=== PATIENT | female | born 1960 | race Caucasian/White ===

== ENCOUNTER 2020-05-06 10:46 | Observation (INO) | payer SELFPAY ==
[2020-05-06 11:44] LABS: #Lymphocytes 1.3 thou/uL (1.20-3.40); #Monocytes 0.4 thou/uL (0.11-0.59); #Neutrophils 5.2 thou/uL (1.40-6.50); %Basophils 0.6 % (0.0-1.0); %Eosinophils 0.4 % (0.0-10.0); %Lymphocytes 18.3 % (21.0-51.0); %Monocytes 6.2 % (0.0-10.0); %Neutrophils 74.5 % (42.0-75.0); Hemoglobin 15.3 g/dL (12.0-16.0); Mean Corpuscular Hemoglobin 33.7 pg (27.0-31.0); Mean Corpuscular Volume 99.2 fL (78.0-98.0); Mean Platelet Volume 7.8 fL (7.4-10.4); Platelet Count 241 thou/uL (130-400); RBC Distribution Width 11.3 % (11.5-14.5); Red Blood Cell (RBC) Count 4.53 mill/uL (4.20-5.40)
--- NOTE | 2020-05-06 12:03 | RAD ---
XR Chest 1 View Portable History: Chest pain Comparison: None. Findings: Lungs are clear. Heart size mildly enlarged. No pneumothorax. No effusion. No acute osseous abnormality. Impression: No acute intrathoracic abnormality.
[2020-05-06 12:07] LABS: ALT (SGPT) 34 U/L (8-55); AST (SGOT) 29 U/L (5-34); Albumin 4.2 g/dL (3.5-5.0); Alkaline Phosphatase 79 U/L (40-110); Anion Gap 18 mmol/L (10-20); BUN (Urea Nitrogen) 12 mg/dL (9.8-20.1); Bilirubin, Total 0.7 mg/dL (0.2-1.2); Calc. Creatinine Clearance 0 mL/min (70-130); Calcium 9.2 mg/dL (7.8-10.44); Carbon Dioxide 25 mmol/L (22-29); Chloride 97 mmol/L (98-107); Globulin 3.4 g/dL (2.4-3.5); Glucose 394 mg/dL (70-105); Potassium 4.1 mmol/L (3.5-5.1); Protein, Total 7.6 g/dL (6.0-8.3); Sodium 136 mmol/L (136-145)
[2020-05-06] MEDS ORDERED: Nitroglycerin 2% Ointment 1 INCH/1 GM Packet ONE (13:21)
[2020-05-06] MEDS ORDERED: Aspirin 325 MG TAB ONE (13:21)
[2020-05-06] MEDS ORDERED: Melatonin 3 MG TAB PO PRN (14:42)
--- NOTE | 2020-05-06 15:00 | PDOC.HHP ---
Hospitalist HPI - History of Present Illness History of Present Illness: ADMISSION DATE: 05/06/2020 TIME OF ASSESSMENT: 1425 PRIMARY CARE PHYSICIAN: Laila CHIEF COMPLAINT: Chest pain HPI: Patient is a 59-year-old female past medical history significant only for cholecystectomy. She presents to the ER today for chest pain that began last night. She states she was uncomfortable while lying in bed with a little back pain and then this morning she felt mid chest sharp pain that radiated up her neck. Patient states she did not take anything to help relieve the pain but did take some ZzzQuil to help her sleep. She denies difficulty breathing, fever, nausea, vomiting, diarrhea, contact with sick persons. She denies a diagnosed history of hypertension, however states that when her blood pressure is checked it is often high. Patient denies any heart history but does take a baby aspirin a day, she started when she heard information that it could possibly help with Covid. ED COURSE: Vital Signs: BP: 144/102, MAP: 116, Pulse: 92, Resp: 18, Pain: 2, O2 sat: 99 on (Room Air) Today in the ER they completed lab work, EKG, and chest x-ray. She was administered aspirin 324 mg oral and nitro 1 inch topical. PAST MEDICAL HISTORY: None PAST SURGICAL HISTORY: Cholecystectomy SOCIAL HISTORY: Patient lives at home with her . She denies any drug use. She does endorse weekly alcohol use and smokes 1/2 pack/day. FAMILY HISTORY: CAD, [place], DM 2, Cancer ALLERGIES: NKDA CURRENT MEDICATIONS: Aspirin 81 mg daily Hospitalist ROS - Review of Systems Cardiovascular: reports: chest pain All other systems reviewed; all pertinent +/- noted in HPI/Subj - Exam General Appearance: NAD, awake alert ENT: normocephalic atraumatic Heart: RRR, no murmur, no gallops, no rubs, normal peripheral pulses Respiratory: CTAB, no wheezes, no rales, no ronchi, normal chest expansion Gastrointestinal: soft, non-tender, non-distended, normal bowel sounds Extremities: no edema Neurological: no focal deficits Musculoskeletal: no muscle wasting Psychiatric: normal affect, normal behavior, A&O x 3 Hospitalist Results - Labs Result Diagrams: 05/06/20 11:29 05/06/20 11:30 Lab results: WBC 7.0 thou/uL (4.8-10.8) 05/06/20 11:29 Hgb 15.3 g/dL (12.0-16.0) 05/06/20 11:29 Hct 44.9 % (36.0-47.0) 05/06/20 11:29 MCV 99.2 fL (78.0-98.0) H 05/06/20 11:29 Plt Count 241 thou/uL (130-400) 05/06/20 11:29 Neutrophils % 74.5 % (42.0-75.0) 05/06/20 11:29 Sodium 136 mmol/L (136-145) 05/06/20 11:30 Potassium 4.1 mmol/L (3.5-5.1) 05/06/20 11:30 Chloride 97 mmol/L (98-107) L 05/06/20 11:30 Carbon Dioxide 25 mmol/L (22-29) 05/06/20 11:30 BUN 12 mg/dL (9.8-20.1) 05/06/20 11:30 Creatinine 0.82 mg/dL (0.6-1.1) 05/06/20 11:30 Glucose 394 mg/dL (70-105) H 05/06/20 11:30 Calcium 9.2 mg/dL (7.8-10.44) 05/06/20 11:30 Total Bilirubin 0.7 mg/dL (0.2-1.2) 05/06/20 11:30 AST 29 U/L (5-34) 05/06/20 11:30 ALT 34 U/L (8-55) 05/06/20 11:30 Alkaline Phosphatase 79 U/L (40-110) 05/06/20 11:30 Troponin I Less than 0.010 ng/mL (< 0.028) 05/06/20 11:30 Serum Total Protein 7.6 g/dL (6.0-8.3) 05/06/20 11:30 Albumin 4.2 g/dL (3.5-5.0) 05/06/20 11:30 - Radiology Interpretation Chest x-ray Status: image reviewed by me, report reviewed by me Additional Comment: No acute intrathoracic abnormality. Hospitalist H&P A/P - Plan Plan: Chest pain Chest pain has decreased as blood pressure has decreased with nitro Continue to trend troponins Cardiac stress test in a.m. if troponins remain negative TSH and mag ordered Hyperglycemia No history of diabetes Initial glucose was 394 Hemoglobin A1c ordered Hypertension Patient presented to the ER with blood pressure 175/95 Patient states she does not have a formal diagnosis of hypertension however commonly has elevated pressure Continue monitor vital signs every 4 hours May need to begin antihypertensive medications As needed antihypertensives available CODE STATUS: Full Surrogate decision-maker is her , Wili Patient discussed with Dr. Roldan
[2020-05-06 15:15] LABS: Magnesium 1.8 mg/dL (1.6-2.6)
[2020-05-06 15:18] LABS: Hemoglobin A1c 11.1 % (4.0-6.0)
[2020-05-06 15:46] LABS: Troponin I Less than 0.010 ng/mL (< 0.028)
[2020-05-06] MEDS ORDERED: Acetaminophen 500 MG TAB PO PRN (19:07)
[2020-05-06] MEDS ORDERED: hydrALAZINE 20 MG/ML VIAL SLOW IVP PRN (19:07)
[2020-05-06] MEDS ORDERED: Labetalol HCl 100 MG/20 ML VIAL SLOW IVP PRN (19:07)
[2020-05-06 22:36] VITALS: BMI 30.5
[2020-05-07 05:05] LABS: Cardiac Risk 4.2 (Less than 4.5)
[2020-05-07] MEDS ORDERED: Aspirin 325 mg Enteric Coated Tablet PO SCH (09:00)
[2020-05-07 11:37] VITALS: BP 149/75; TEMP 98.7
--- NOTE | 2020-05-07 11:44 | NM ---
EXAM: CARDIAC SPECT HISTORY: Chest pain, hypertension TECHNIQUE: A myocardial perfusion scan was performed using the single isotope 1 day protocol with adiel hnetium 99m sestamibi. [10 mCi] was injected intravenously for the rest exam followed by 30 mCi for the stress study. Exercise stress was monitored and interpreted by the nurse practitioner. FINDINGS: Homogeneous tracer distribution is seen in the myocardial segments on stress and rest image s without fixed or reversible defects. Gated SPECT LVEF: 73% Wall motion exam: Normal IMPRESSION: Normal myocardial perfusion scan
[2020-05-07 12:27] LABS: SARS-CoV-2 MS2 Positive; SARS-CoV-2 N Gene Negative; SARS-CoV-2 S Gene Negative; SARS-CoV-2 by NAA Not Detected (NotDetected); SARS-CoV-2 orf1ab Negative
--- NOTE | 2020-05-07 13:33 | PDOC.DS.DS ---
Provider - Provider Date of Admission: 05/06/20 14:11 Date of Discharge: 05/07/20 Admitting Provider: Tony Roldan DO Primary Care Physician: Cleveland Ulloa DO Course - Hospital Course Hospital Course: Discharge diagnosis: 1. Chest pain 2. Chest pain most likely secondary to musculoskeletal etiology 3. Newly diagnosed diabetes mellitus 4. Newly diagnosed dyslipidemia Hospital course: Patient is a pleasant 59-year-old lady who was admitted to the hospital on May 06, 2020 for chest pain. Nuclear stress test was normal. Gated SPECT LVEF was 73%. Pulmonary embolism was ruled out with a negative D-dimer. She had an elevated hemoglobin A1c of 11.1. Fasting lipid profile showed triglycerides 190, cholesterol 208, LDL cholesterol 120 and history of cholesterol 50. She has been advised to follow-up with primary care provider for management of dyslipidemia, diabetes mellitus and hypertension. Many thanks for allowing me to participate in your patient's care. Please feel free to contact me with any questions or concerns. Discharge destination: Home - Labs Lab Results: 05/06/20 11:29 05/06/20 11:30 Abnormal Lab Results - Last 48 hrs 05/06/20 11:29: MCV 99.2 H, MCH 33.7 H, RDW 11.3 L, Lymphocytes % 18.3 L 05/06/20 11:30: Chloride 97 L 05/06/20 14:32: Hemoglobin A1c 11.1 H 05/07/20 04:07: Triglycerides 190 H, Cholesterol 208 H 05/07/20 12:31: D-Dimer Less than 0.27 L - Physical Exam Vitals: Vital Signs (12 hours) Temp Pulse Resp BP Pulse Ox 05/07/20 11:35 98.7 F 105 H 17 149/75 H 95 05/07/20 07:47 98.8 F 98 20 140/79 96 05/07/20 04:00 98.5 F 91 18 123/59 L 96 Weight Weight 183 lb 9.6 oz Physical Exam: The patient was seen and examined on the day of discharge. Patient denies chest pain or shortness of breath. Vital signs are stable. S1 and S2 are heard. Lungs are clear to auscultation bilaterally. Plan - Discharge Medications Prescriptions: metFORMIN [Glucophage] 500 mg PO BID- #60 tab Lisinopril 2.5 mg PO DAILY #30 tablet Home Medications: Medication Instructions Recorded Confirmed Type Aspirin [Ecotrin] 81 mg PO DAILY 05/06/20 05/06/20 History Lisinopril 2.5 mg PO DAILY #30 tablet 05/07/20 Rx Omeprazole 20 mg PO DAILY 05/07/20 05/07/20 History metFORMIN [Glucophage] 500 mg PO BID-WM #60 tab 05/07/20 Rx Allergies: No Known Allergies Allergy (Unverified 05/06/20 15:08) - Discharge Instructions Discharge Instructions:: Acute blood pressure and heart rate 3 times a day and shows readings to primary care provider. Follow-up with your primary care provider for management of diabetes mellitus, dyslipidemia and hypertension. Activity:: Activity as Tolerated Nourishment:: Diabetic Diet, Heart Healthy Diet - Follow up Plan Referrals: Tez Ulloa DO [Primary Care Provider] - 3 Days Disposition: HOME Quality - Care Measures CORE MEASURES:: N/A
[2020-05-07] MEDS ORDERED: FLU VACC QS2020-21(6MOS UP)/PF 60 MCG/0.5 ML SYRINGE IM ONE (21:00)
--- NOTE | 2020-05-11 15:21 | EKG ---
Test Reason : Blood Pressure : / mmHG Vent. Rate : 102 BPM Atrial Rate : 102 BPM P-R Int : 122 ms QRS Dur : 090 ms QT Int : 356 ms P-R-T Axes : 033 -27 000 degrees QTc Int : 463 ms Sinus tachycardia Nonspecific ST abnormality Abnormal ECG Confirmed by ALEX MORENO DO ([id number]), assistant production editor CAL ELDER ([id number]) on 05/11/2020 3:20:27 PM Referred By: Confirmed By:ALEX MORENO DO
== END 2020-05-07 14:47 | disposition home or self-care (01) ==
LOC: ERS 10:46 → ERHOLD 14:11 → 2NO 19:39
PROVIDERS: ADMIT Family Medicine; ATTEND Internal Medicine
DX: R07.9 Chest pain, unspecified (principal); E11.65 Type 2 diabetes mellitus with hyperglycemia; E78.5 Hyperlipidemia, unspecified; I10 Essential (primary) hypertension; F17.210 Nicotine dependence, cigarettes, uncomplicated; Z79.82 Long term (current) use of aspirin; Z79.899 Other long term (current) drug therapy; Z20.828 Contact with and (suspected) exposure to other viral communicable diseases
CPT/HCPCS: 36415; 71045; 78452; 80053; 80061; 83036; 83690; 83735; 84443; 84484; 85025; 85379; 87635; 93005; 93017; 94760; A9500; G0378; U0003